=== PATIENT | female | born 1990 | race Caucasian/White ===

== ENCOUNTER 2017-04-16 11:08 | Emergency (ER) | payer MEDICAID ==
[~2017-04-16] VITALS: Ht 170.2 cm; Wt 80.7 kg
[~2017-04-16 11:08] MED LIST: BROMFED DM COU118 ML PO; CITALOPRAM HYDR20 MG PO; FLONASE 50 MCG16 GM; NAPROXEN SODIU500 MG PO; NOMEDS XX; Pepcid20 MG PO; ULTRAM 50 MG TA50 MG PO; ZOFRAN4 MG PO
[2017-04-16 11:33] VITALS: BP 112/68
--- NOTE | 2017-04-16 11:33 | [facility]gent Treatment Center Report ---
History of Present Issue Date/Time Seen by Provider 04/16/17 1115 Visit Reason Pt arrived:Walked Presenting Problem:PT STATES SHE'S HAD A SORE THROAT AND EAR PAIN Location if Accident: Onset of symptoms date/time:/ or onset unknown for:MEDICAL HX UNKNOWN Have you (or family members/close friends) recently traveled outside the [place]? N If Yes, where/when: Have you had exposure to infectious disease within the past month? TB? Other? Specify: c/o sore throat. Daughter had to be picked up due to sore throat today. Neg strep. pt without fever. left ear pain intermittently. Hasn't taken or tried anything. No other known sick contacts. Denies ear drainage or change in hearing. Source patient Exam Limitations no limitations ALLERGIES Coded Allergies: No Known Allergies (09/20/15) History Medical History General CAD? No Angina: No CT: No Hypertension? No Hyperlipidemia? No CHF? No DVT? No PE? No COPD? No Asthma? No Anemia? No GERD? No Gastric ulcers? No GI Bleed? No Hernia? No Thyroid Problems? No Hypothyroidism? No CVA? No Seizures? No Diabetes? No Renal Insuffiency? No UTI? Yes Stones? No BPH? No GB Disease: Yes Nephritic Syndrome? No Asplenia? No Hepatitis? No Sickle Cell Disease? No Arthritis? No Migraines? No Cataracts? No Glaucoma? No MRSA? No HIV? No TB? No Anxiety? No Depression? No Cancer? No More? No Immunization HX DT/Tetanus 5-10 Years Ago Flu 2014-16FSN Pneumonia Never Had Surgical Hx Previous Surgery?Y WISDOM TEETH TONSILS Family History Family HX Diabetes No CAD Yes Hypertension Yes Hyperlipidemia Yes Cancer Yes TB No Social History Smoking Hx Smoker: Never Smoker Tobacco: No Alcohol Alcohol: No Review of Systems All Other Systems Reviewed and Negative Constitutional see HPI, denies malaise Eyes denies drainage ENT see HPI, nose discharge. denies: nose congestion, throat swelling. Respiratory denies cough Gastrointestinal denies see HPI Musculoskeletal denies joint pain Skin denies rash Psychiatric/Neurological denies headache Physical Exam Vital Signs Vital Signs Date Time Temp Pulse Resp B/P Pulse O2 O2 Flow FiO2 Ox Delivery Rate 04/16 1133 98.7 97 20 112/68 98 04/16 1117 98.7 97 20 112/ 98 General Appearance normal appearance, no apparent distress Eye Exam - bilateral eye normal exam Ear, Nose, Throat normal ENT inspection Neck non-tender, supple Respiratory Status No: respiratory distress, productive cough, non productive cough. Lung Sounds anterior: lungs clear. posterior: lungs clear. bilateral: lungs clear. Cardiovascular regular rate/rhythm, no peripheral edema, no rub Neurologic alert, oriented x 3 Mental status normal mood/affect Skin normal color, warm/dry Lymphatic no adenopathy Medical Decision Making LABS/Meds/Orders Pt receiving controlled substance in ED? No Results/Orders Laboratory Tests 04/16/17 1113: Group A Strep Screen NOT DETECTED Orders Procedure Date/time Status [facility] STREP SCREEN 04/16 1113 Complete Departure Departure Time of Disposition 1131 Disposition DC Home or Self Care(routine) Clinical Impression Primary Impression: Viral pharyngitis Condition STABLE Referrals NO REFERRAL IMMEDIATELY for new or worsening symptoms OR no noticeable improvement over the next 72 hours. 911 for difficulty breathing or swallowing. Patient Instructions DI for Viral Pharyngitis Additional Instructions * No sign of bacterial infection. Likely viral. Virus can take 7-14 days to run their course * Monitor Temp. Follow up if fever develops * Encourage fluids, water, gatorade, powerade, pedialyte if infant/toddler/child * warm salt water gargles * warm fluids * sore throat lozenges * sleep elevated * humidifier/vaporizer * * Your throat swab was sent for culture. Those results are typically sent to your primary care. Be sure to follow up in 2-3 days if no improvement so they can review those results and treat if necessary. If you don't have primary care, I recommend you get one but in the mean time, you will have to return to a walk in clinic. Discharge Counseling Counseled pt/family regarding diagnosis, test results, medications/RX, home care, follow up needs at 1136
== END 2017-04-16 11:38 | disposition home or self-care (01) ==
LOC: UTC 11:08
DX: J02.9 Acute pharyngitis, unspecified (principal)